=== PATIENT | female | born 1945 | race Caucasian/White ===

== ENCOUNTER 2018-02-09 08:25 | Day surgery (SDC) | payer MEDICARE, BC, OTHER ==
[~2018-02-09 08:25] MED LIST: EPINEPHRINE INJ 1 MG/10 ML DISP.SYRIN ONE; FLUMAZENIL INJ 0.5 MG/5 ML VIAL ONE; GLUCAGON,HUMAN RECOMB 1 MG INJ ONE; NALOXONE HCL INJ/PF 0.4 MG/1 ML SDV ONE; ONDANSETRON HCL INJ/PF 4 MG/2 ML SDV ONE
[2018-02-09] MEDS: MIDAZOLAM 2 MG/2 ML INJ ONE ×4 (08:53→09:16)
[2018-02-09] MEDS: FENTANYL CITRATE INJ/PF 100 MCG/2 ML AMPUL ONE ×3 (08:55→09:15)
--- NOTE | 2018-02-09 09:36 | Discharge Summary ---
Discharge Summary (SDC) - Discharge Final Diagnosis: 1. Small sessile polyp of the cecum 2. Scattered diverticulosis of the sigmoid colon Date of Surgery: 02/09/18 Discharge Date: 02/09/18 Condition: Good Treatment or Instructions: [address] [address] POST ENDOSCOPY DISCHARGE INSTRUCTIONS 1. Diet: Start clear liquids that a regular diet as tolerated. 2. Resume all preoperative medications. All oral anticoagulants and aspirins can be resumed 24 hours after procedure. 3. If a polypectomy was performed some bleeding per rectum may occur. This should stop within 3 days. If not, please contact the office. 4. If you had a colonoscopy you may experience some bloating and delayed return of normal bowel function for several days, your regular bowel movement pattern should resume within a week. 5. Please contact [facility] at to make an appointment with Dr. Pak for 1 to 3 weeks following procedure. 6. If you have any questions or concerns regarding your care,treatment plan or follow up, please contact our office. 7. Per clinical guidelines we recommend you undergo a repeat colonoscopy in _3_ ____ years. Discharge Diet: As Tolerated Discharge Activity: Activity As Tolerated Home Care Assistance: None Needed Report the Following to Your Physician Immediately: Shortness of Breath, Increase in Pain, Fever over 101 Degrees
--- NOTE | 2018-02-09 09:42 | Operative Report ---
Operative Report DATE OF SURGERY: 02/09/18 PREOPERATIVE DIAGNOSIS: 1. Sigmoid diverticulosis. 2. History of tubulovillous adenoma POSTOPERATIVE DIAGNOSIS: 1. Sigmoid diverticulosis. 2. Small sessile polyp of the cecum OPERATION: 1. Total colonoscopy to cecum. 2. Cecal polypectomy with cold forceps device SURGEON: RENETTA HAMMOND ANESTHESIA: Moderate Sedation TISSUE REMOVED OR ALTERED: Cecal polyp COMPLICATIONS: None ESTIMATED BLOOD LOSS: Scant INTRAOPERATIVE FINDINGS: See below PROCEDURE: Obtaining informed consent the patient was taken from the preoperative holding area to the main endoscopy suite where monitoring devices were attached to the patient. Plan and surgical timeout were conducted The patient was placed in the left lateral decubitus position with knees to chest. A perianal examination was performed. There was no visible or palpable anorectal pathology. Sphincter tone was felt to be normal. The flexible adult colonoscope was advanced through the anal rectal canal, all the way to the cecum. Visualization of the cecum was achieved and the ileocecal valve, the appendiceal orifice and transillumination of the anterior abdominal wall. This was an excellent study on the well-prepped bowel. The colonoscope was withdrawn slowly and methodically checked and the mucosa carefully. There was no evidence of tumor, stricture, bleeding or polyp. There were scattered diverticulosis sigmoid colon; there was a small cecal polyp which was photographed, and removed with the cold forceps device is approximately 3 mm and sent to pathology. Bleeding was negligible. The scope was slowly withdrawn through the anal rectal canal. Complete visualization of the rectum was achieved with photodocumentation. The scope was withdrawn to the patient's anus. The patient tolerated the procedure well and was taken to the recovery area in stable condition. Per surveillance guidelines, patient be appropriate candidate for follow-up colonoscopy in 3 years.
[2018-02-09 10:38] VITALS: BP 113/62
== END 2018-02-09 10:40 | disposition home or self-care (01) ==
LOC: END 08:25
PROVIDERS: ATTEND Surgery
DX: Z12.11 Encounter for screening for malignant neoplasm of colon (principal); Z86.010 Personal history of colon polyps; K57.30 Diverticulosis of large intestine without perforation or abscess without bleeding; D12.0 Benign neoplasm of cecum; I83.93 Asymptomatic varicose veins of bilateral lower extremities; Z79.899 Other long term (current) drug therapy
CPT/HCPCS: 45380; 88305 ×2; J2250; J3010; J2405; J0171; J1610; J2310; J3490